=== PATIENT | male | born 1990 | race Caucasian/White ===

== ENCOUNTER 2019-12-02 11:48 | Emergency (ER) | payer OTHER ==
[~2019-12-02] VITALS: Ht 180.3 cm; Wt 81.6 kg
== END 2019-12-02 20:19 | disposition home or self-care (01) ==
LOC: ER 11:48
DX: K63.89 Other specified diseases of intestine (principal); R10.32 Left lower quadrant pain

== ENCOUNTER 2022-08-15 14:42 | Emergency (ER) | payer OTHER ==
[~2022-08-15] VITALS: Ht 180.3 cm; Wt 93.0 kg
== END 2022-08-15 20:05 | disposition home or self-care (01) ==
LOC: ER 14:42
DX: A90 Dengue fever [classical dengue] (principal)